=== PATIENT | female | born 1965 | race Caucasian/White ===

== ENCOUNTER 2020-08-22 12:26 | Outpatient (CLI) | payer MEDICAID ==
[~2020-08-22] VITALS: Ht 167.6 cm; Wt 101.3 kg
[~2020-08-22 12:26] MED LIST: AMBIEN 10MG10 MG PO; CALAN120 MG PO; FLEXERIL5 MG PO; NAPROSYN500 MG PO; NEURONTIN600 MG/TAB PO; ONE-A-DAY ESSE1 EACH PO; OXYCONTIN 20MG20 MG PO; PRILOSEC 20MG20 MG PO; TENORMIN 2525 MG/TAB PO; TOPAMAX 100MG100 M1 PO; TYLENOL PM EXTR1 TA1 PO; ZESTRIL 10MG10 MG PO; ZOCOR 40MG40 MG PO; ZYRTEC 10MG10 MG PO
[2020-08-22 12:44] VITALS: BP 112/76; PULSE 94
[2020-08-22 13:25] VITALS: BP 91/43; PULSE 85; PULSE 86
[2020-08-22 13:45] VITALS: BP 92/38; PULSE 86
[2020-08-22 14:00] VITALS: BP 94/52; PULSE 84
[2020-08-22 14:15] VITALS: BP 82/25; PULSE 93
[2020-08-22 14:30] VITALS: BP 97/45; PULSE 95
--- NOTE | 2020-08-22 14:44 | NUR ---
Patient up and to the bathroom without difficulty. Steady on her feet. Denies any abnormal pain/discomfort. Ready for discharge
--- NOTE | 2020-08-22 14:57 | NUR ---
Reviewed discharge instructions with patient. Patient verbalizes understand. No other questions or needs at this time. Taken by W/C to lobby. Patient discharged into husbands care at this time
== END 2020-08-22 14:45 | disposition home or self-care (01) ==
LOC: COL.RAD 12:26
DX: M48.02 Spinal stenosis, cervical region (principal); M50.223 Other cervical disc displacement at C6-C7 level
CPT/HCPCS: Q9967

== ENCOUNTER 2022-12-19 08:35 | Day surgery (SDC) | payer MEDICAID ==
[~2022-12-19] VITALS: Ht 160 cm; Wt 96.5 kg
[2022-12-19 08:58] VITALS: BP 119/69; PULSE 84; TEMP 97.9
[2022-12-19] MEDS ORDERED: TOPAMAX50 MG PO (09:15)
[2022-12-19] MEDS ORDERED: MEVACOR40 MG PO (09:16)
[2022-12-19] MEDS ORDERED: SYNTHROID0.075 MG/T PO (09:16)
[2022-12-19] MEDS ORDERED: GLUCOPHAGE1000 MG PO (09:17)
[2022-12-19] MEDS ORDERED: DIABETA 5MG5 MG/TAB PO (09:17)
[2022-12-19] MEDS ORDERED: NYSTATIN POWDER15 GM TOP (09:18)
[2022-12-19] MEDS ORDERED: ASPIRIN 32325 MG/TAB PO (09:18)
--- NOTE | 2022-12-19 09:30 | NUR ---
The patient ambulated back to [facility] independently using a steady gait and appeared to tolerate the activity well. Vital signs obtained. Consent signed. Assessment completed. Home medications reconcillled. 20G IV started in right hand with one stick, LR Infusing. Blood sugar checked with a result of 153. Call light is within reach. Daughter at bedside. Warm blanket provided. Denies any further needs.
[2022-12-19 11:15] VITALS: BP 127/69; PULSE 83; TEMP 97.5
[2022-12-19 11:30] VITALS: BP 117/64; PULSE 84
--- NOTE | 2022-12-19 12:27 | NUR ---
1115-PT ARRIVED TO ENDO BAY 5 VIA CART, AMBULATED WITH ASSISTANCE TO RECLINER. WARM BLANKET GIVEN. VITAL SIGNS TAKEN, VSS. PT DENIES NAUSEA, REPORTS ABDOMINAL PAIN IS SAME BEFORE PROCEDURE. REPORT OBTAINED FROM MCKENZIE BRICE. PO INTAKE OFFERED TO PT 1130-PT TOLERATING PO INTAKE, DENIES COMPLAINTS. VSS 1155-DR. MCNEILL AT BEDSIDE, DISCUSSED PROCEDURE AND QUESTIONS INVITED. DISCHARGE INSTRUCTIONS REVIEWED WITH PT AND DAUGHTER AT BEDSIDE. 1205-IV CATHETER DISCONTINUED, TIP INTACT. PRESSURE HELD AND BANDAGE APPLIED. PT AMBULATED TO BATHROOM INDEPENDENTLY AND CHANGED INTO CLOTH[place] 1220-PT DISCHARGED HOME TO [facility] VIA WHEELCHAIR, ACCOMPANIED BY FAMILY MEMBERS. ALL BELONGINGS AND D/C INSTRUCTIONS SENT WITH PT.
== END 2022-12-19 12:20 | disposition home or self-care (01) ==
LOC: SDCO 08:35
DX: K92.1 Melena (principal); K29.80 Duodenitis without bleeding; K56.699 Other intestinal obstruction unspecified as to partial versus complete obstruction; K64.3 Fourth degree hemorrhoids; K31.89 Other diseases of stomach and duodenum; R19.7 Diarrhea, unspecified; I10 Essential (primary) hypertension; F17.210 Nicotine dependence, cigarettes, uncomplicated; Z79.899 Other long term (current) drug therapy
CPT/HCPCS: J2704; J3010; J7120

== ENCOUNTER 2023-03-15 08:09 | Day surgery (SDC) | payer MEDICAID ==
[~2023-03-15] VITALS: Ht 160 cm; Wt 91.9 kg
[~2023-03-15 08:09] MED LIST changes: +ASPIRIN 32325 MG/TAB PO; +DIABETA 5MG5 MG/TAB PO; +GLUCOPHAGE1000 MG PO; +MEVACOR40 MG PO; +NYSTATIN POWDER15 GM TOP; +SYNTHROID0.075 MG/T PO; +TOPAMAX50 MG PO
[2023-03-15 10:17] VITALS: BP 104/49; PULSE 90; TEMP 98
[2023-03-15] MEDS ORDERED: METHOTREXA2.5 MG/TAB PO (10:22)
--- NOTE | 2023-03-15 10:29 | NUR ---
0830 Pt ambulatory to bay 7 with a steady gait, breathing even and unlabored. Pt is alert and oriented. Consents reviewed and signed by pt. IV established. LR infusing via gravity at KVO. Call light in reach. Warm blanket provided.
[2023-03-15 11:20] VITALS: BP 80/44; PULSE 98; TEMP 97.7
[2023-03-15] MEDS ORDERED: PERCOCET 325 MG1 TA2 PO (11:26)
[2023-03-15 11:35] VITALS: BP 102/69; PULSE 88
[2023-03-15 11:50] VITALS: BP 112/66; PULSE 79
[2023-03-15 12:20] VITALS: BP 133/65; PULSE 89
--- NOTE | 2023-03-15 20:12 | NUR ---
1120: PT TO [facility] FROM OR S/P HEMORRHOIDECTOMY WITH IV SEDATION SLEEPY WITH PATENT AIRWAY, PLACED ON MONITOR. BP LOW, GENARO KENNEDY AWARE - VORB TO BOLUS REMAINING 500ML LR CURRENTLY INFUSING - DONE WHILE PT IN [facility]. RECEIVED REPORT AND ASSUMED CARE OF PT FROM GENARO AND KASHMIR GREENBERG 4X4, PERIPAD, MESH BRIEFS CDI 1135 PT AWAKE, BP WDL, VSS ON RA. DENIES COMPLAINT, NAD. WAS ORIENTED TO STATUS, DISPO, AND PLAN - AGREEABLE. SON BROUGHT TO BEDSIDE AND UPDATED ON SAME PT PROVIDED FOOD/FLUIDS, TOLERATING WELL PT HAS REMAINED A&O, NAD, VSS ON RA, TOLERATING PO, IS WITHOUT SIGNIFICANT COMPLAINT, WITH STEADY GAIT BY END OF STAY 1235 IV D/C'D. D/C INSTRUCTIONS, FOLLOW UP REVIEWED AND HANDED TO PT. ALL QUESTIONS AND CONCERNS ADDRESSED TO PT SATISFACTION. 1240 TAKEN TO EXIT VIA W/C WITH ALL BELONGINGS AND PAPERWORK IN HAND, ASSISTED INTO PASSENGER SEAT OF POV. SON TO DRIVE HOME.
== END 2023-03-15 15:30 | disposition home or self-care (01) ==
LOC: SDCO 08:09
DX: K64.2 Third degree hemorrhoids (principal); F17.210 Nicotine dependence, cigarettes, uncomplicated
CPT/HCPCS: J2405; J2704; J3010; J7120